=== PATIENT | female | born 1960 | race Caucasian/White ===

== ENCOUNTER 2017-06-10 15:10 | Outpatient (CLI) | payer OTHER ==
--- NOTE | 2017-06-10 16:11 | DIAGNOSTIC IMAGING REPORT ---
PROCEDURE: US VENOUS - LEFT EXT INDICATION: LT LEG PAIN,POST Surgi/O DVT TECHNIQUE: Duplex sonography of the deep venous system in the left lower extremity was performed. Compression and augmentation techniques were used. COMPARISON: None. FINDINGS: Each interrogated segment of deep vein from the common femoral vein into the calf veins demonstrates normal compressibility, augmentation and/or color Doppler flow without filling defect. There is extensive bruising. IMPRESSION: 1. No deep venous thrombosis in the left lower extremity.
== END 2017-06-10 23:00 ==
LOC: US SRH 15:10
DX: M79.605 Pain in left leg (principal); Z98.890 Other specified postprocedural states